=== PATIENT | male | born 1970 | race Caucasian/White ===

== ENCOUNTER → 2017-03-23 | Outpatient (CLI) | payer OTHER | LOC: CAT 07:52 | DX: K57.30 Diverticulosis of large intestine without perforation or abscess without bleeding (principal) ==

== ENCOUNTER 2017-04-13 05:29 | Inpatient (IN) | payer OTHER ==
[~2017-04-13] VITALS: Ht 182.9 cm; Wt 97.8 kg
--- NOTE | ~2017-04-13 | EKG ---
[address] [address] ELECTROCARDIOGRAM REPORT Name: RADHA DUKE Room #: 449-I ADM IN .R.#: [id number] Admission: 04/13/17 Attend Phys: Newton Braxton MD Discharge: Date of : 72 Report #: [id number] THIS REPORT FOR: //name// [facility] Test Date: 2017-04-16 Test Time: 11:28:28 Pat Name: RADHA DUKE Department: Room: [facility] Gender: M [employer] Driver: KETAN : 1970 Requested By: Newton Braxton Order Number: [id number] MD: Olman Deleon Measurements Intervals [place] Rate: 135 P: 19 DC: 128 QRS: 80 QRSD: 77 T: 1 QT: 270 QTc: 405 Interpretive Statements Sinus tachycardia Otherwise no significant abnormality No previous ECG available for comparison Electronically Signed On 04-17-2017 8:22:09 CDT by Olman Deleon [email or web address] <ELECTRONICALLY SIGNED> By: Olman Deleon MD, [facility] 04/17/17 0822 1128 1128 Olman Deleon MD, FAC /EPI
--- NOTE | ~2017-04-13 | HC ---
[facility] [place] [address] [place] [address] CONSULTATION Name: RADHA DUKE Room #: 207-P [facility] IN M.R.#: [id number] Admission: 04/13/17 Attend Phys: Newton Braxton MD Discharge: Date of : 72 Report #: [id number] THIS REPORT FOR: //name// CC: Bull Braxton REFERRING PHYSICIAN: Newton Braxton M.D. REASON FOR REFERRAL: Ventilator management. HISTORY OF PRESENT ILLNESS: The patient is a 47-year-old white male who is status post laparoscopic sigmoid resection for recurrent and complicated diverticulitis. Plan is to take the patient back to the OR tomorrow. The patient is left on a ventilator. A pulmonary consultation is requested. Hemodynamically, the patient is stable. He is sedated. PAST MEDICAL HISTORY: Notable for long history of diverticulitis. He had a recent microperforation. The patient has also developed abdominal abscess, requiring drainage. He had a recent diagnostic laparoscopic drainage and irrigation of the abdominal access. He also has a history of hypertension. PAST SURGICAL HISTORY: As mentioned above. ALLERGIES: NSAIDS, reaction is not specified. MEDICATIONS: His current medication list is reviewed. FAMILY HISTORY: Notable for history of diverticular disease. SOCIAL HISTORY: There is no history of tobacco use. The patient drinks occasionally. 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 REVIEW OF SYSTEMS: Deferred as the patient is intubated. PHYSICAL EXAMINATION: GENERAL: He is sedated. VITAL SIGNS: Temperature 100.5 degrees Fahrenheit, pulse is 108, respiratory rate is 20, blood pressure is 129/85 mmHg, saturation 85%. HEENT: Normocephalic, atraumatic. NECK: Supple without any lymphadenopathy or thyromegaly. CHEST: Breath sounds are clear bilaterally without any rales or wheezes. CARDIOVASCULAR: Normal S1 and S2. There are no murmurs or gallops. There is no JVD. There is no carotid bruit. Pulses are 2+/4+ bilaterally. ABDOMEN: Mildly distended, no masses felt. GENITOURINARY AND RECTAL: Deferred. EXTREMITIES: There is no cyanosis, clubbing or edema. [facility] [address] [place] [address] CONSULTATION Name: RADHA DUEK Room #: 207-P [facility] IN .R.#: [id number] Admission: 04/13/17 Attend Phys: Newton Braxton MD Discharge: Date of : 72 Report #: [id number] LABORATORY DATA: A portable chest x-ray shows mild left lower lobe atelectasis, ET tube approximately 2.5 cm above the tatyana. Right lung cordoba are clear. Lung volumes are decreased bilaterally. Sodium 130, potassium 4.1, chloride 96. CO2 is 27. BUN is 20. Creatinine is 1.0. WBC 11,500, hemoglobin 13.0. Platelets are normal. Arterial blood gas performed earlier revealed pH 7.41, pCO2 of 33, pO2 of 98 on FIO2 of 40%. Current vent settings are reviewed. He is on assist control with FIO2 of 60%. IMPRESSION: 1. Recurrent and complicated diverticulitis, status post laparoscopic surgery, with sigmoid colectomy with low end anastomosis. 2. Respiratory failure, expectant. 3. Hypertension. 4. Hyponatremia. 5. Mild bibasilar atelectasis, expectant. RECOMMENDATION: We will continue mechanical ventilation, wean FIO2 to keep saturation 90% and continue PEEP at 5. Follow up chest x-ray. We will also try to wean FiO2 below 50%-60% to avoid oxygen toxicity. Usual chest physiotherapy including bronchodilators will be administered. Followup chest x-ray will be performed in the morning. We will make changes to the IV fluids given hyponatremia. P.r.n. sedation and pain medication will be addressed. DVT and GI prophylaxes would also be addressed. Thank you for this consultation. <ELECTRONICALLY SIGNED> By: Jonathan Prabhakar MD 04/26/17 1233 1643 0232 Jonathan Prabhakar MD /nt
--- NOTE | ~2017-04-13 | S ---
[facility] [place] [address] [place] [address] SURGICAL PATH RPT PROCEDURE Name: RADHA DUKE Room #: 449-I ADM IN M.R.#: [id number] Admission: 04/13/17 Date of : 72 Discharge: Report #: [id number] Path Case #: [id number] PATHOLOGY REPORT COLLECTION DATE: 04/13/2017 RECEIVED DATE: 04/13/2017 SUBMITTING PHYS: Dr. Newton Braxton OTHER PHYS: Dr. Bull Oglesby SPECIMEN(S) RECEIVED: A.Sigmoid colon * * * * * * * * * * * * FINAL DIAGNOSIS: Large intestine, sigmoid colon, colectomy: - Chronic diverticulitis in a background of extensive diverticulosis. - Negative for dysplasia or malignancy. - Margins of resection showing unremarkable mucosa. (IUV:mgr; 04/17/2017) PATHOLOGIST: Yessenia Vega M.D. REPORT ELECTRONICALLY SIGNED BY: Yessenia Vega M.D. DATE/TIME: 04/17/2017 16:39 * * * * * * * * * * * * GROSS PATHOLOGY: The specimen is received fresh from the OR labeled with the patient's name, and "sigmoid colon" consists of a 27 cm segment of colon with one open end designated as proximal, and one closed stapled end designated as distal per Dr. Newton Braxton. The external serosal surface appears smooth. The specimen is opened longitudinally and it shows multiple diverticula. There are no mucosal mass-like lesions identified. These findings are displayed to Dr. Newton Braxton, and at this point the specimen is left for fixation. (IUV:mgr; 04/13/2017) On further sectioning the largest measuring 1.2 x 1.0 cm which is 4.0 cm from the distal margin. In addition there is an intact diverticulum 0.5 cm closest to the proximal margin measuring 0.6 cm in greatest dimension. A1 proximal margin with diverticulum A2 distal margin A3 largest diverticulum A4-A5 diverticulum from proximal to distal (SWS; 04/14/2017) INTRAOPERATIVE CONSULTATION [address] [place] [address] SURGICAL PATH RPT PROCEDURE Name: RADHA DUKE Room #: 449-I ADM IN M.R.#: [id number] Admission: 04/13/17 Date of : 72 Discharge: Report #: [id number] Path Case #: [id number] (Yessenia Vega M.D.) Large intestine, sigmoid colon, colectomy: - Multiple diverticula. - No mass-like lesions identified. These findings are displayed to Dr. Newton Braxton in OR1 at [facility]. (IUV:mgr; 04/13/2017) Testing performed by [facility] at [facility] [address] [place] [address] CLINICAL HISTORY: None Provided INITIAL CPT CODE(S): A; 82163, 95356 Professional services performed by [facility] at [facility] [address] [place] [address] Technical services performed by [facility] at [address] [place] [address], [address], [place] [address]. [facility] [address] [place] [address] PHONE: [phone] DIRECTOR: Umer Cason M.D. * * * END OF REPORT * * *
--- NOTE | ~2017-04-13 | O ---
[facility] [place] [address] [place] [address] OPERATIVE REPORT Name: RADHA DUKE Room #: 245-P [facility] IN M.R.#: [id number] Admission: 04/13/17 Attend Phys: Newton Braxton MD Discharge: Date of : 72 Report #: [id number] THIS REPORT FOR: //name// CC: Bull Braxton DATE OF SERVICE: 04/19/2017 PREOPERATIVE DIAGNOSES: Status post laparoscopic sigmoid resection, postoperative bowel obstruction. POSTOPERATIVE DIAGNOSIS: Diffuse peritonitis secondary to rupture of disrupted anastomosis, posterior aspect. PROCEDURES PERFORMED: Diagnostic laparoscopy converted to open laparotomy with takedown of the anastomosis and colostomy, copious debridement and irrigation. ANESTHESIA: General. SURGEON: Newton Braxton MD COMPLICATIONS: None. ESTIMATED BLOOD LOSS: 50 mL. PROCEDURE NOTE: With the patient under general anesthesia, abdomen was prepped and draped in sterile fashion. Laparoscope was placed in the cutdown manner above the umbilicus. This is where his previous incision was located from his October surgery. Fascia was identified, Fascia was opened and then controlled with 0 Vicryl suture. Veress needle was then placed through peritoneum. Abdominal cavity was insufflated by CO2. After creating pneumoperitoneum to a pressure of 15, an 11 mm trocar was placed. This was placed under visualization into the pneumoperitoneum. Laparoscopic evaluation shows purulent exudate, particularly in the left abdomen. At this point, procedure was converted to open procedure. Midline incision was made from the umbilicus downward and then extended to above the umbilicus at the midline of the fascial level, the skin level, a little bit left to the umbilicus. The fascia was opened. Peritoneum was opened. There was thickening in the peritoneum. Foul smelling content was identified. Cultures obtained. Small bowel was found and has had multiple areas covered with exudate. The small bowel was angry and inflamed, particularly the proximal aspect on the left upper quadrant area. Dissection was carried down to the pelvis. The small bowel was free from the pelvis. There was increased peritoneal inflammation at the pelvis. With finger palpation, a disruption was identified in the posterolateral anastomosis site. The anterior part was intact. The anastomosis was then divided sharply with scissor. Further contamination was controlled. The distal stump was closed [facility] [address] [place] [address] OPERATIVE REPORT Name: RADHA DUKE Room #: 245-P [facility] IN ..#: [id number] Admission: 04/13/17 Attend Phys: Newton Braxton MD Discharge: Date of : 72 Report #: [id number] with 3-0 Prolene suture in interrupted fashion. Copious irrigation was performed. Peritoneal exudate on the small bowel surface was debrided. I did find a sealed off pocket laterally where the patient had the lateral gutter where the ascending colon was free. Copious irrigation was performed until clear. The NG tube was palpated in the stomach in good position. There was no infection over the liver area. The bowel was run from the ligament of Treitz all the way to the right colon. Colostomy was then placed in the left lower quadrant slightly below the umbilical level. The incision was made here to avoid the previous scar that was in the left lower quadrant. The bowel was quite heavily covered by fat. This fat is more inflamed and thickened. The fat had to be dissected off the colon to bring the colostomy out. Small [place] of skin was excised. The anterior fascia was opened in a cruciate manner. The muscle was spread and also partly divided. Posterior sheath was opened. Bowel was brought out. After multiple evaluations, the bowel was able to be brought out to a significant length. The abdominal wall was left open. ABThera wound VAC was placed. The ABThera wound VAC was measured to size and then placed in the peritoneal cavity. Sponge was placed on the surface. The supplied OpSite type dressing was placed. Good seal was obtained. Prior to this, the colostomy was matured with 3-0 Vicryl suture. The patient was taken to Intensive Care Unit. Mccauley catheter was placed at the end of the case. The patient will be kept on the ventilator to allow him to rest. Finding was discussed with the family. By: 1712 1827 Newton Braxton MD /philip
--- NOTE | ~2017-04-13 | HC ---
[facility] [place] [address] [place] [address] CONSULTATION Name: RADHA DUKE Room #: 207-P [facility] IN M.R.#: [id number] Admission: 04/13/17 Attend Phys: Newton Braxton MD Discharge: Date of : 72 Report #: [id number] THIS REPORT FOR: //name// CC: Bull Braxton REASON FOR CONSULTATION: I was asked to evaluate the patient concerning peritonitis with postoperative infection following diverticular disease and sigmoid resection. HISTORY OF PRESENT ILLNESS: The patient was a 47-year-old with a long history of diverticulitis. He had had issues earlier this year where he had evidence of a microperforation and pelvic abscess. He was treated at [facility]. At that time, he had had laparoscopic drainage and irrigation. He had postoperative antibiotic therapy. He presented on 04/13 for elective sigmoid resection. Dr. Braxton performed a laparoscopic sigmoid colectomy with low EEA anastomosis. There were no intraoperative complications. Findings included a markedly inflamed sigmoid colon adherent to the left pelvic brim. Postoperatively, he had continued abdominal distention and poor progression of bowel function. He was taken back to surgery today where there was evidence of peritonitis with anastomotic disruption posteriorly. He had end colostomy performed along with washout. Postoperatively, he has had fever and transient hypotension. He remains on the ventilator, FiO2 of 60%. He has responded to fluid boluses. He has good urine output. He has been given vancomycin and Zosyn. He has IV access and an indwelling Mccauley catheter. His abdomen was left open and has an incisional wound VAC in place. He has a colostomy in the left lower quadrant. ALLERGIES: NONSTEROIDAL ANTI-INFLAMMATORIES. MEDICATIONS: As noted on his MAR including vancomycin and Zosyn. PAST MEDICAL HISTORY: Pulmonary embolus, hypertension and diverticulitis. FAMILY HISTORY: Diverticular disease. 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 REVIEW OF SYSTEMS: As noted above with no additions. PHYSICAL EXAMINATION: VITAL SIGNS: Currently afebrile. He is tachycardic. Blood pressure is stable over 100 systolic on an FIO2 of 60%. IV access unremarkable. Indwelling Mccauley catheter with reasonable urine output. SKIN: Unremarkable. HEENT: Unremarkable. He was sedated. LUNGS: Clear anteriorly. [address] [address] CONSULTATION Name: RADHA DUKE Room #: 207-P [facility] IN M.R.#: [id number] Admission: 04/13/17 Attend Phys: Newton Braxton MD Discharge: Date of : 72 Report #: [id number] HEART: Regular. ABDOMEN: Diffusely tender. Colostomy site was unremarkable. Abdominal wound VAC in place. GENITOURINARY: External genitalia unremarkable with indwelling Mccauley catheter. EXTREMITIES: Unremarkable. He did move all extremities. LABORATORY STUDIES: Hemoglobin 15, WBC 14.3 with 28% bands, platelet count 233,000. Procalcitonin 28.7, sodium 134, potassium 4.7, bicarb of 23, creatinine 1.2. Liver function tests normal except for bilirubin of 2.9. ABG on 60% showed a pO2 of 98, pCO2 of 33, pH 7.4, bicarb of 20, lactate 2.3. Chest x-ray: Basilar atelectasis. Urinalysis unremarkable other than 2+ protein. Blood cultures and peritoneal cultures are pending. IMPRESSION: This is a 47-year-old with peritonitis and sepsis with transient shock. He has marked leukocytosis. Respiratory failure related to the above. He is postoperative day #6 from his initial sigmoid resection. Now postoperative day from exploratory laparotomy and washout of fecal peritonitis. RECOMMENDATION: We will continue broad antibiotic coverage including vancomycin, Zosyn and fluconazole, pending culture results. Full support of sepsis. I have discussed with nursing staff at the bedside regarding approach to his care. I have discussed with the patient's family. Initial discussion with Dr. Braxton prior to my evaluation. We will adjust antibiotics following culture results. The patient is scheduled to return to the operating room tomorrow for further washout and probable closure of his abdomen. We will follow laboratory studies. <ELECTRONICALLY SIGNED> By: Terrell Fairbanks MD 04/25/17 1322 2019 0445 Terrell Fairbanks MD /nt
--- NOTE | ~2017-04-13 | O ---
[facility] [place] [address] [place] [address] OPERATIVE REPORT Name: RADHA DUKE Room #: 407-P [facility] IN M.R.#: [id number] Admission: 04/13/17 Attend Phys: Newton Braxton MD Discharge: Date of : 72 Report #: [id number] THIS REPORT FOR: //name// CC: Bull Braxton DATE OF SERVICE: 04/13/2017 PREOPERATIVE DIAGNOSIS: Sigmoid diverticulitis. POSTOPERATIVE DIAGNOSIS: Sigmoid diverticulitis. PROCEDURE PERFORMED: Laparoscopic sigmoid colectomy with low EEA anastomosis. Mobilization of the splenic flexure. SURGEON: Newton Braxton M.D. ANESTHESIA: General anesthesia. COMPLICATIONS: None. ESTIMATED BLOOD LOSS: 50 mL. DESCRIPTION OF PROCEDURE NOTE: With the patient under general anesthesia, abdomen was prepped and draped in sterile fashion. The patient was in the lithotomy position. IV antibiotic was administered. Timeout was performed. An infraumbilical incision was made and fascia identified. Fascia was grasped with hemostat. Fascia was then opened under visualization, 0 Vicryl suture placed on the fascia. With the abdominal wall lifted anteriorly, Veress needle was then placed without difficulty. Pneumoperitoneum was established. An 11 mm trocar was placed under visualization. No harm to underlying tissue. A 5 mm trocar was placed in the right lower quadrant. Another 5 mm trocar was placed in the right upper quadrant just above the umbilicus. These are the sides that I previously used for port site to evacuate a pelvis abscess just above the bladder. The area of the involvement of the diverticulitis was easily visualized. The colon was adhesed to the lateral pelvic brim area. Dissection was carried out freeing the colon from the lateral attachment. Care was not to dig into the retroperitoneum. Dissection was carried superiorly. The colon was free all the way up to the splenic flexure. The omentum was free from the distal transverse colon. An accessory spleen was found and the colon was applied against this. The splenic flexure was freed from the accessory spleen allowing it to drop. Dissection was then carried inferiorly. A 12 mm trocar was placed to the left lower quadrant where the bowel eventually be pulled out from. This was used to hold the bowel. This was used to facilitate the dissection. Lateral dissection was carried out. There is scar tissue here. I was able to develop a plane fairly easily. There is also bowel adhesed to the [facility] [address] [place] [address] OPERATIVE REPORT Name: RADHA DUKE Room #: 407-P [facility] IN .R.#: [id number] Admission: 04/13/17 Attend Phys: Newton Braxton MD Discharge: Date of : 72 Report #: [id number] bladder ____. The colon appeared pretty healthy. The diseased colon is above this area in the mid sigmoid. Medial dissection was carried out freeing the sigmoid colon down to the rectum. The mesentery was able to be dissected through a Harmonic scalpel and also clips were used for the vessels. The mesocolon was freed. This was free from above the diseased area down to the upper rectum. The upper rectum was free without difficulty. The distal transection was performed with Endo-JONES 45 mm in length with the blue westley. Three separate fires were used. A very last staple was on very edge of the bowel wall left laterally. Once the bowel was freed, the end was grasped and then pulled through the 12 mm trocar site and incision was enlarged and the fascia was opened. Due to the bowel being quite thickened, I did have to make incision to allow that bowel to come out. The diseased bowel was identified in the middle by specimen. The specimen was approximately 10 inches. The proximal bowel was cleaned off and then pursestring maker was placed across the bowel. A 3-0 PDS with a Robinson needle was used to make the pursestring. The bowel was sized to a 29 ____. A 29 EEA was used. The anvil portion was placed in the proximal bowel. The pursestring was tied down. Further fatty tissue was freed from the stapled anvil portion. This was then brought back in the abdomen. The fascia at this side was closed with 0 PDS and the posterior layer. Anteriorly, it was closed with 0 Prolene. A laparoscope was then placed. The proximal bowel was able to be brought down the pelvis without difficulty. The 29 EEA was then passed up the anus. This was passed up to the staple line without difficulty. At this point, I was right at the end, the perforating portion of the EEA was advanced out. The upper part of the anvil of the EEA was then snapped together with the lower part. The EEA was closed. After closing this and then tightening it allowing ____ tissue fluid to come out. The EEA was fired. After firing the EEA, the EEA was loosened 1-1/4 turned and then removed. Rigid proctoscope was placed. The colon was well distended with air and there was no leak identified. The air was evacuated as much as possible with withdrawing the proctoscope. The staple line, the visualized portion, was well formed. No bubbling was seen with the anastomosis ____. Irrigation was aspirated out. Trocars then removed with evacuation of CO2 as much as possible. Prior to the closure, the right lower quadrant 12 mm trocar, which was used for the Endo-JONES, this was closed with Endo stitch device and 0 PDS. Skin was irrigated. Skin was closed with 4-0 PDS at the left lower quadrant incision site. The arthroscopic trocar sites were all closed with 5-0 PDS, 4 x 4, OpSite used for dressing. Mastisol and Steri-Strip, Band-Aids applied. The patient taken to recovery room. The patient tolerated the procedure well. By: 2154 0055 Newton Braxton MD /nt
--- NOTE | ~2017-04-13 | O ---
[facility] [place] [address] [place] [address] OPERATIVE REPORT Name: RADHA DUKE Room #: 245-P [facility] IN M.R.#: [id number] Admission: 04/13/17 Attend Phys: Newton Braxton MD Discharge: Date of : 72 Report #: [id number] THIS REPORT FOR: //name// CC: Bull Braxton DATE OF SERVICE: 04/20/2017 PREOPERATIVE DIAGNOSIS: Peritonitis secondary to disrupted anastomosis. Here for a second look. POSTOPERATIVE DIAGNOSIS: Peritonitis secondary to disrupted anastomosis. Here for a second look. PROCEDURES PERFORMED: Second look laparotomy with irrigation, placing a drain and then closing of the abdominal wall. DESCRIPTION OF PROCEDURE: With the patient under general anesthesia, the ABThera dressing was removed. The skin was prepped with Betadine. The inner portion of the ABThera was removed. Small serous fluid with slight cloudiness to it was seen. The small bowel underneath are soft, but adherent to each other. Careful dissection was performed to free the bowel loop from each other. The bowels were all free without hurting it from ligament of Treitz down to the cecum. A small amount of interloop fluid, which is slightly cloudy, but did not have any odor. The previous rectal stump was seen and it is intact. No gross contamination. Each quadrant was irrigated. Approximately 3 liters irrigated. The bowel was replaced as gently as possible, starting from the left upper quadrant to the right lower quadrant. A moistened laparotomy tape was placed in the bowel. The abdomen was then closed. Prior to closure, 2 drains were placed, both in the lower quadrant. The one on the right is going into the pelvis and the one on the left is going up to the left gutter. This is where a previous collection was found. 19 Cody drain was sewn with 2-0 nylon. Abdominal wall was closed. Fascia was closed with 0 Prolene loop x 2. During the midline closure, 2 bolster sutures were placed of #1 Prolene. Adjustable bridge was used to these 2 sites. Skin was then closed with skin westley. The patient tolerated the procedure well and was taken to Intensive Care. By: 1021 1104 Newton Braxton MD /nt
--- NOTE | ~2017-04-13 | H ---
[facility] [place] [address] [place] [address] HISTORY AND PHYSICAL Name: RADHA DUKE Room #: 150-1 ADM IN .R.#: [id number] Admission: 04/13/17 Attend Phys: Newton Braxton MD Discharge: Date of : 72 Report #: [id number] THIS REPORT FOR: //name// CC: Bull Braxton PREOPERATIVE DIAGNOSIS: Diverticulitis with multiple attacks, complicated episode in October 2016 with abscess formation. HISTORY OF PRESENT ILLNESS: The patient is a 47-year-old who has a longstanding history of diverticulitis. The patient in October complained of pain in the prostate, anal area, urethral area and he was found on CAT scan to have diverticulitis and there was microperforation with fluid tracking into the pelvis anterior to the bladder. He was hospitalized at [facility]. The patient does have family history of ruptured colon. His prior episodes were able to be treated as an outpatient. The patient did develop an abscess that required drainage. This was not amenable to percutaneous drainage. The patient underwent diagnostic laparoscopy, drainage and irrigation. The patient did resolve that acute episode. He was also on antibiotics. The drain was eventually removed. His repeat CT did show resolution of the acute episode. Recently, he did have some more pain, so was treated with a course of antibiotics. He did resolve that. He is here for resection of the sigmoid colon. He does have diffuse , but the sigmoid colon is markedly diseased on CT scan. After his hospitalization, the patient was admitted for a pulmonary embolus. PAST MEDICAL HISTORY: He has a history of hypertension. MEDICATIONS: He takes Flomax. He is not on anything for high blood pressure. ALLERGIES: TO NSAIDS. PAST SURGICAL HISTORY: Laparoscopic drainage of diverticular abscess. FAMILY HISTORY: Colon disease with diverticular disease. 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 Does not smoke. Occasional alcohol. REVIEW OF SYSTEMS: The patient did have an episode several weeks ago, but he has resolved that. He denies any pain. Bowels are working. No chest pain, shortness of breath, palpitation. PHYSICAL EXAMINATION: GENERAL: The patient is alert and oriented. Well-developed, well-nourished. HEENT: Pupils react to light. Extraocular muscles are intact. Oropharynx clear. [facility] [address] [place] [address] HISTORY AND PHYSICAL Name: RADHA DUKE Room #: 150-1 [facility] IN [facility].#: [id number] Admission: 04/13/17 Attend Phys: Newton Braxton MD Discharge: Date of : 72 Report #: [id number] NECK: Soft and supple, no masses, no JVD. LUNGS: Clear to auscultation. No wheezes or rhonchi. HEART: Regular rate and rhythm. No murmur or gallop. Normal S1, S2. ABDOMEN: Soft and minimal tenderness in the left lower quadrant. No mass detected. No guarding, rigidity, no ascites. EXTREMITIES: No cyanosis, clubbing or edema. IMPRESSION: The patient is a 47-year-old with several episodes of diverticulitis. The patient had a complicated episode in October that required laparoscopic drainage. Because of the recurrent nature and the attack that he had, he is recommended to have his sigmoid colon removed. The patient is at higher risk for deep venous thrombosis and pulmonary embolism. He will be prophylaxed. The patient did receive a mechanical bowel prep in the night. The patient understands that he has remaining diverticulosis, hopefully would not have any attacks. The patient wants to proceed with surgery to avoid future episodes which is very likely to occur. By: 0812 0922 Newton Braxton MD /nt
[2017-04-13 09:49] LABS: HEMATOCRIT 48.2 % (42.0-52.0); HEMOGLOBIN 17.1 gm/dL (14.0-18.0); MCHC 35.4 g/dL (28.0-37.0); MCV 87.6 fL (80.0-100.0); RBC 5.5 mil/uL (4.50-6.00); RDW 13.7 % (10.5-14.5)
[2017-04-13 10:01] LABS: CALCIUM 9.2 mg/dL (8.5-10.1); CREATININE 1.1 mg/dL (0.7-1.3); POTASSIUM 4.1 mmol/L (3.5-5.1)
[2017-04-13 11:01] VITALS: BP 125/85
[2017-04-13 16:32] VITALS: BP 143/89
[2017-04-13 20:15] VITALS: BP 116/77
[2017-04-14 00:15] VITALS: BP 105/67
[2017-04-14 03:52] LABS: CALCIUM 8.2 mg/dL (8.5-10.1); CREATININE 1.1 mg/dL (0.7-1.3); POTASSIUM 4.3 mmol/L (3.5-5.1)
[2017-04-14 04:23] VITALS: BP 109/71
[2017-04-14 04:32] LABS: HEMATOCRIT 42.4 % (42.0-52.0); MCH 30.8 pg (26.0-34.0); MCHC 34.6 g/dL (28.0-37.0); MCV 89.1 fL (80.0-100.0); RBC 4.76 mil/uL (4.50-6.00); RDW 13.8 % (10.5-14.5); WBC 12.6 thou/uL (4.0-11.0)
[2017-04-14 04:42] LABS: HEMOGLOBIN 14.7 gm/dL (14.0-18.0)
[2017-04-14 07:36] VITALS: BP 106/54
[2017-04-14 16:32] VITALS: BP 122/69
[2017-04-14 20:05] VITALS: BP 130/78
[2017-04-15 04:08] VITALS: BP 127/79
[2017-04-15 07:41] VITALS: BP 132/82
[2017-04-15 17:33] VITALS: BP 149/99
[2017-04-16 05:20] LABS: MCH 30.8 pg (26.0-34.0); MCHC 34.2 g/dL (28.0-37.0); MCV 90.2 fL (80.0-100.0); RBC 5.55 mil/uL (4.50-6.00); RDW 13.4 % (10.5-14.5); WBC 7.1 thou/uL (4.0-11.0)
[2017-04-16 05:21] LABS: HEMOGLOBIN 17.1 gm/dL (14.0-18.0)
[2017-04-16 05:45] LABS: CALCIUM 9.1 mg/dL (8.5-10.1); CREATININE 1.2 mg/dL (0.7-1.3); POTASSIUM 4.6 mmol/L (3.5-5.1)
[2017-04-16 08:06] VITALS: BP 109/75
[2017-04-16 11:30] LABS: ABG SAMPLE TYPE ARTERIAL; BE(vivo) -2.4 mmol/L (-2 to +3); HCO3 20.3 mmol/L (22.0-26.0); LACTATE 2.64 mmol/L (0.5-2.0); O2(CT) 21.9 mL/dL (15.0-23.0); O2Hb 91.7 % (92.0-98.0); PCO2 30.3 mmHg (35.0-45.0); PO2 58.8 mmHg (80.0-100.0); STICK SITE L.RADIAL; pH 7.443 (7.360-7.450); sO2 91.8 % (92.0-98.0); tCO2 21.2 mmol/L (24.0-30.0)
[2017-04-16 14:50] VITALS: BP 123/82
[2017-04-16 16:00] VITALS: BP 102/69
[2017-04-16 19:25] VITALS: BP 115/80
[2017-04-17] VITALS (7 sets, daily range): BP systolic 109–135; BP diastolic 60–88
[2017-04-17 04:49] LABS: HEMATOCRIT 44.3 % (42.0-52.0); MCH 30.6 pg (26.0-34.0); MCHC 33.9 g/dL (28.0-37.0); MCV 90.3 fL (80.0-100.0); PLATELET COUNT 172 thou/uL (150-400); RDW 13.4 % (10.5-14.5); WBC 8.6 thou/uL (4.0-11.0)
[2017-04-17 05:11] LABS: CALCIUM 8.9 mg/dL (8.5-10.1); CREATININE 1.4 mg/dL (0.7-1.3); MANUAL DIFF YES; POTASSIUM 4.8 mmol/L (3.5-5.1)
[2017-04-17 05:47] LABS: ABSOLUTE NEUTROPHILS 6.5 thou/uL (1.4-8.2); METAMYELOCYTES 5 %; TOTAL CELL COUNT 100
[2017-04-17 15:22] LABS: URINE BILIRUBIN 1+ (Negative); URINE BLOOD 1+ (Negative); URINE COLOR ORANGE; URINE GLUCOSE-RANDOM* TRACE (Negative); URINE KETONES NEGATIVE (Negative); URINE NITRITE POSITIVE (Negative); URINE PROTEIN (DIPSTICK) 2+ (Negative); URINE SPECIFIC GRAVITY >= 1.030 (1.003-1.035); URINE UROBILINOGEN 0.2 E.U./dl (0.2-1.0)
[2017-04-17 15:23] LABS: ICTOTEST (BILI CONFIRMATORY) Negative (Negative)
[2017-04-17 16:10] LABS: BACTERIA 1-9 Few /HPF (None Seen); SQUAMOUS None Seen /LPF (0-3); URINE RBC None Seen /HPF (0-2); URINE WBC None Seen /HPF (0-5)
[2017-04-17 16:11] LABS: CASTS None Seen /LPF (None Seen); CRYSTALS None Seen /LPF (None Seen)
[2017-04-18] VITALS: BP 159/112
[2017-04-18 04:12] VITALS: BP 122/85
[2017-04-18 07:22] VITALS: BP 141/94
[2017-04-18 11:14] LABS: HEMATOCRIT 38.1 % (42.0-52.0); HEMOGLOBIN 13.4 gm/dL (14.0-18.0); MCH 31.1 pg (26.0-34.0); MCHC 35.1 g/dL (28.0-37.0); MCV 88.6 fL (80.0-100.0); PLATELET COUNT 188 thou/uL (150-400); RDW 13.4 % (10.5-14.5); WBC 8.7 thou/uL (4.0-11.0)
[2017-04-18 11:15] VITALS: BP 150/92
[2017-04-18 11:15] LABS: MANUAL DIFF YES
[2017-04-18 11:22] LABS: CALCIUM 8.8 mg/dL (8.5-10.1); POTASSIUM 4.3 mmol/L (3.5-5.1)
[2017-04-18 11:58] LABS: ABSOLUTE NEUTROPHILS 7.9 thou/uL (1.4-8.2); PLATELET ESTIMATE NORMAL; TOTAL CELL COUNT 100
[2017-04-18 15:49] VITALS: BP 134/89
[2017-04-18 20:06] VITALS: BP 141/95
[2017-04-19] VITALS (19 sets, daily range): BP systolic 88–159; BP diastolic 71–112
[2017-04-19 06:24] LABS: HEMATOCRIT 36.9 % (42.0-52.0); MCHC 35.2 g/dL (28.0-37.0); MCV 88.1 fL (80.0-100.0); RBC 4.18 mil/uL (4.50-6.00); RDW 13.6 % (10.5-14.5); WBC 11.5 thou/uL (4.0-11.0)
[2017-04-19 06:35] LABS: CALCIUM 8.7 mg/dL (8.5-10.1); POTASSIUM 4.1 mmol/L (3.5-5.1)
[2017-04-19 16:34] LABS: ABG SAMPLE TYPE ARTERIAL; BE(vivo) -2.9 mmol/L (-2 to +3); HCO3 20.6 mmol/L (22.0-26.0); LACTATE 2.37 mmol/L (0.5-2.0); O2Hb 96.8 % (92.0-98.0); PCO2 33.1 mmHg (35.0-45.0); PO2 98.3 mmHg (80.0-100.0); STICK SITE R.BRACHIAL; TIDAL VOLUME 700 ml; pH 7.412 (7.360-7.450); sO2 97.6 % (92.0-98.0); tCO2 21.6 mmol/L (24.0-30.0)
[2017-04-19 18:42] LABS: HEMATOCRIT 44.5 % (42.0-52.0); MCH 30.3 pg (26.0-34.0); MCHC 33.6 g/dL (28.0-37.0); MCV 90.2 fL (80.0-100.0); PLATELET COUNT 233 thou/uL (150-400); RBC 4.94 mil/uL (4.50-6.00); RDW 13.6 % (10.5-14.5); WBC 14.3 thou/uL (4.0-11.0)
[2017-04-19 18:56] LABS: INR 1.1; PROTIME 11.6 Seconds (9.3-11.4)
[2017-04-19 19:00] LABS: MANUAL DIFF YES
[2017-04-19 19:02] LABS: CALCIUM 7.5 mg/dL (8.5-10.1); CREATININE 1.2 mg/dL (0.7-1.3); POTASSIUM 4.7 mmol/L (3.5-5.1)
[2017-04-19 19:06] LABS: ALBUMIN 1.4 g/dL (3.4-5.0); TOTAL BILIRUBIN 2.9 mg/dL (<0.1-1.0); TOTAL PROTEIN 4.9 g/dL (6.4-8.2)
[2017-04-19 19:36] LABS: TOTAL CELL COUNT 100
[2017-04-19 19:37] LABS: METAMYELOCYTES 8 %; MYELOCYTES 3 %
[2017-04-19 19:38] LABS: PLATELET ESTIMATE NORMAL
[2017-04-19 21:08] LABS: URINE BILIRUBIN 2+ (Negative); URINE BLOOD NEGATIVE (Negative); URINE COLOR AMBER; URINE GLUCOSE-RANDOM* NEGATIVE (Negative); URINE KETONES TRACE (Negative); URINE LEUKOCYTES-REFLEX NEGATIVE (Negative); URINE PROTEIN (DIPSTICK) 1+ (Negative); URINE SPECIFIC GRAVITY 1.025 (1.003-1.035); URINE UROBILINOGEN 0.2 E.U./dl (0.2-1.0)
[2017-04-19 21:20] LABS: CASTS None Seen /LPF (None Seen); CRYSTALS None Seen /LPF (None Seen); SQUAMOUS 0-3 Few /LPF (0-3); URINE RBC None Seen /HPF (0-2); URINE WBC-REFLEX None Seen /HPF (0-5)
[2017-04-19 22:37] LABS: CALCIUM 7.4 mg/dL (8.5-10.1); CREATININE 0.9 mg/dL (0.7-1.3); POTASSIUM 4.7 mmol/L (3.5-5.1)
[2017-04-19 22:42] LABS: APTT 36.9 Seconds (24.5-32.8); FIBRINOGEN 564.9 mg/dL (210-360); INR 1.1; PROTIME 11.4 Seconds (9.3-11.4)
[2017-04-20] VITALS (55 sets, daily range): BP systolic 98–134; BP diastolic 59–90
[2017-04-20 04:59] LABS: HEMATOCRIT 39.8 % (42.0-52.0); HEMOGLOBIN 13.4 gm/dL (14.0-18.0); MCH 30.4 pg (26.0-34.0); MCHC 33.7 g/dL (28.0-37.0); MCV 90.2 fL (80.0-100.0); RBC 4.41 mil/uL (4.50-6.00); RDW 14.2 % (10.5-14.5); WBC 15.9 thou/uL (4.0-11.0)
[2017-04-20 05:10] LABS: CALCIUM 7.4 mg/dL (8.5-10.1); CREATININE 0.9 mg/dL (0.7-1.3); POTASSIUM 4.6 mmol/L (3.5-5.1)
[2017-04-20 05:12] LABS: APTT 34.3 Seconds (24.5-32.8); INR 1.1
[2017-04-20 05:17] LABS: FIBRINOGEN 719.7 mg/dL (210-360)
[2017-04-20 11:36] LABS: ALBUMIN 1.3 g/dL (3.4-5.0); MAGNESIUM 2.3 mg/dL (1.8-2.4)
[2017-04-20 12:40] LABS: ALBUMIN 1.4 g/dL (3.4-5.0); TOTAL BILIRUBIN 2.4 mg/dL (<0.1-1.0); TOTAL PROTEIN 4.1 g/dL (6.4-8.2)
[2017-04-21] VITALS (48 sets, daily range): BP systolic 90–133; BP diastolic 58–88
[2017-04-21 05:26] LABS: ABG COMMENT AC14 700 +5 50%; ABG SAMPLE TYPE ARTERIAL; BE(vivo) 0.1 mmol/L (-2 to +3); HCO3 24.3 mmol/L (22.0-26.0); LACTATE 1.19 mmol/L (0.5-2.0); O2(CT) 16.9 mL/dL (15.0-23.0); O2Hb 97.5 % (92.0-98.0); PCO2 37.9 mmHg (35.0-45.0); PO2 130.5 mmHg (80.0-100.0); STICK SITE LRA; TIDAL VOLUME 700 ml; pH 7.425 (7.360-7.450); sO2 98.7 % (92.0-98.0); tCO2 25.5 mmol/L (24.0-30.0)
[2017-04-21 05:42] LABS: RDW 14.2 % (10.5-14.5)
[2017-04-21 05:44] LABS: MCHC 34.5 g/dL (28.0-37.0); MCV 89.8 fL (80.0-100.0); PLATELET COUNT 185 thou/uL (150-400); RBC 3.34 mil/uL (4.50-6.00); WBC 16.8 thou/uL (4.0-11.0)
[2017-04-21 05:45] LABS: HEMOGLOBIN 10.4 gm/dL (14.0-18.0); MANUAL DIFF YES
[2017-04-21 06:11] LABS: CALCIUM 7.2 mg/dL (8.5-10.1); CREATININE 0.7 mg/dL (0.7-1.3); MAGNESIUM 2.5 mg/dL (1.8-2.4); PHOSPHORUS 1.8 mg/dL (2.5-4.9); POTASSIUM 3.8 mmol/L (3.5-5.1)
[2017-04-21 06:11] LABS: ABSOLUTE NEUTROPHILS 13.9 thou/uL (1.4-8.2); ATYPICAL LYMPHS 1 %; METAMYELOCYTES 2 %; TOTAL CELL COUNT 100
[2017-04-21 06:12] LABS: ANISOCYTOSIS 1+; POLYCHROMASIA OCCASIONAL
[2017-04-22] VITALS (24 sets, daily range): BP systolic 111–156; BP diastolic 68–89
[2017-04-22 05:42] LABS: HEMATOCRIT 31.2 % (42.0-52.0); HEMOGLOBIN 10.6 gm/dL (14.0-18.0); MCH 30.7 pg (26.0-34.0); MCV 90.1 fL (80.0-100.0); PLATELET COUNT 223 thou/uL (150-400); RBC 3.47 mil/uL (4.50-6.00); RDW 14.8 % (10.5-14.5); WBC 19.5 thou/uL (4.0-11.0)
[2017-04-22 05:53] LABS: MANUAL DIFF YES
[2017-04-22 05:59] LABS: ALBUMIN 1.2 g/dL (3.4-5.0); CALCIUM 7.1 mg/dL (8.5-10.1); CREATININE 0.7 mg/dL (0.7-1.3); MAGNESIUM 2.3 mg/dL (1.8-2.4); PHOSPHORUS 3.1 mg/dL (2.5-4.9); POTASSIUM 4.4 mmol/L (3.5-5.1); TOTAL BILIRUBIN 1.9 mg/dL (<0.1-1.0); TOTAL PROTEIN 4.7 g/dL (6.4-8.2)
[2017-04-22 10:07] LABS: ABSOLUTE NEUTROPHILS 15.6 thou/uL (1.4-8.2); ANISOCYTOSIS 1+; METAMYELOCYTES 3 %; TOTAL CELL COUNT 100
[2017-04-22 10:08] LABS: POLYCHROMASIA OCCASIONAL
[2017-04-22 11:24] LABS: ABG SAMPLE TYPE ARTERIAL; BE(vivo) -0.1 mmol/L (-2 to +3); HCO3 23.5 mmol/L (22.0-26.0); LACTATE 0.81 mmol/L (0.5-2.0); O2(CT) 17.6 mL/dL (15.0-23.0); PO2 104.3 mmHg (80.0-100.0); pH 7.445 (7.360-7.450); tCO2 24.6 mmol/L (24.0-30.0)
[2017-04-22 11:25] LABS: Pressure Support 8 cm H20; STICK SITE L.RADIAL
[2017-04-23] VITALS (23 sets, daily range): BP systolic 137–165; BP diastolic 81–111
[2017-04-23 05:51] LABS: HEMATOCRIT 30.3 % (42.0-52.0); HEMOGLOBIN 10.1 gm/dL (14.0-18.0); MCH 29.8 pg (26.0-34.0); MCHC 33.3 g/dL (28.0-37.0); MCV 89.4 fL (80.0-100.0); RBC 3.39 mil/uL (4.50-6.00); RDW 14.4 % (10.5-14.5); WBC 20.9 thou/uL (4.0-11.0)
[2017-04-23 06:10] LABS: CALCIUM 7.7 mg/dL (8.5-10.1); CREATININE 0.6 mg/dL (0.7-1.3); MAGNESIUM 1.9 mg/dL (1.8-2.4); PHOSPHORUS 3.2 mg/dL (2.5-4.9); POTASSIUM 4.3 mmol/L (3.5-5.1)
[2017-04-24] VITALS (18 sets, daily range): BP systolic 135–161; BP diastolic 81–95
[2017-04-24 04:39] LABS: HEMATOCRIT 29.3 % (42.0-52.0); MCH 30.3 pg (26.0-34.0); MCHC 34.1 g/dL (28.0-37.0); RBC 3.29 mil/uL (4.50-6.00); RDW 14.6 % (10.5-14.5); WBC 19.2 thou/uL (4.0-11.0)
[2017-04-24 04:59] LABS: CALCIUM 7.6 mg/dL (8.5-10.1); CREATININE 0.6 mg/dL (0.7-1.3); MAGNESIUM 1.7 mg/dL (1.8-2.4); POTASSIUM 4.2 mmol/L (3.5-5.1)
[2017-04-25 00:08] VITALS: BP 145/97
[2017-04-25 03:53] VITALS: BP 153/89
[2017-04-25 07:25] VITALS: BP 162/101
[2017-04-25 08:15] LABS: HEMATOCRIT 30.7 % (42.0-52.0); HEMOGLOBIN 10.2 gm/dL (14.0-18.0); MCH 29.6 pg (26.0-34.0); MCHC 33.2 g/dL (28.0-37.0); PLATELET COUNT 377 thou/uL (150-400); RBC 3.45 mil/uL (4.50-6.00); RDW 14.1 % (10.5-14.5); WBC 20.5 thou/uL (4.0-11.0)
[2017-04-25 08:19] LABS: MANUAL DIFF YES
[2017-04-25 08:31] LABS: CALCIUM 7.9 mg/dL (8.5-10.1); CREATININE 0.6 mg/dL (0.7-1.3); MAGNESIUM 1.9 mg/dL (1.8-2.4); PHOSPHORUS 3.3 mg/dL (2.5-4.9); POTASSIUM 4.4 mmol/L (3.5-5.1)
[2017-04-25 09:06] LABS: ABSOLUTE NEUTROPHILS 15.2 thou/uL (1.4-8.2); METAMYELOCYTES 4 %; MYELOCYTES 1 %; PLATELET ESTIMATE NORMAL; TOTAL CELL COUNT 100
[2017-04-25 11:04] VITALS: BP 157/103
[2017-04-25 18:02] VITALS: BP 144/91
[2017-04-25 20:35] VITALS: BP 146/100
[2017-04-26 00:12] VITALS: BP 144/91
[2017-04-26 04:35] VITALS: BP 139/94
[2017-04-26 06:18] LABS: HEMATOCRIT 29.7 % (42.0-52.0); HEMOGLOBIN 9.9 gm/dL (14.0-18.0); MCHC 33.5 g/dL (28.0-37.0); MCV 89.4 fL (80.0-100.0); PLATELET COUNT 445 thou/uL (150-400); RBC 3.32 mil/uL (4.50-6.00); RDW 14.2 % (10.5-14.5)
[2017-04-26 06:28] LABS: CALCIUM 7.8 mg/dL (8.5-10.1); CREATININE 0.7 mg/dL (0.7-1.3); POTASSIUM 4.1 mmol/L (3.5-5.1)
[2017-04-26 06:37] LABS: MANUAL DIFF YES
[2017-04-26 07:57] VITALS: BP 136/90
[2017-04-26 08:54] LABS: ABSOLUTE NEUTROPHILS 14.6 thou/uL (1.4-8.2); ANISOCYTOSIS SLIGHT; METAMYELOCYTES 5 %; TOTAL CELL COUNT 100
[2017-04-26 11:35] VITALS: BP 135/88
[2017-04-26 15:05] VITALS: BP 147/89
[2017-04-26 19:37] VITALS: BP 172/104
[2017-04-27] VITALS (10 sets, daily range): BP systolic 130–147; BP diastolic 75–98
[2017-04-27 07:54] LABS: CALCIUM 7.9 mg/dL (8.5-10.1); CREATININE 0.7 mg/dL (0.7-1.3); MAGNESIUM 2.1 mg/dL (1.8-2.4); PHOSPHORUS 2.8 mg/dL (2.5-4.9); POTASSIUM 4.2 mmol/L (3.5-5.1)
[2017-04-28 03:59] LABS: HEMOGLOBIN 11.5 gm/dL (14.0-18.0); MCH 36.9 pg (26.0-34.0); PLATELET COUNT 488 thou/uL (150-400); RBC 3.11 mil/uL (4.50-6.00); RDW 14.4 % (10.5-14.5); WBC 16.1 thou/uL (4.0-11.0)
[2017-04-28 04:01] LABS: MANUAL DIFF YES
[2017-04-28 04:09] LABS: CALCIUM 6.8 mg/dL (8.5-10.1); CREATININE 0.6 mg/dL (0.7-1.3); MAGNESIUM 1.9 mg/dL (1.8-2.4); PHOSPHORUS 2.9 mg/dL (2.5-4.9); POTASSIUM 3.9 mmol/L (3.5-5.1)
[2017-04-28 05:23] VITALS: BP 138/87
[2017-04-28 07:30] VITALS: BP 140/93
[2017-04-28 07:54] LABS: ABSOLUTE NEUTROPHILS 11.1 thou/uL (1.4-8.2); MYELOCYTES 3 %; PROMYELOCYTES 1 %; TOTAL CELL COUNT 100
[2017-04-28 11:37] VITALS: BP 140/93
[2017-04-28 11:40] VITALS: BP 140/79
[2017-04-28 15:50] VITALS: BP 146/86
[2017-04-28 19:39] VITALS: BP 160/93
[2017-04-29] VITALS (7 sets, daily range): BP systolic 132–171; BP diastolic 88–102
[2017-04-29 07:00] LABS: CALCIUM 6.7 mg/dL (8.5-10.1); CREATININE 0.8 mg/dL (0.7-1.3); MAGNESIUM 1.6 mg/dL (1.8-2.4); PHOSPHORUS 2.8 mg/dL (2.5-4.9); POTASSIUM 3.3 mmol/L (3.5-5.1)
[2017-04-29 13:47] LABS: MAGNESIUM 2.3 mg/dL (1.8-2.4)
[2017-04-29 13:49] LABS: POTASSIUM 5.9 mmol/L (3.5-5.1)
[2017-04-30 05:07] LABS: ABSOLUTE NEUTROPHILS 10.1 thou/uL (1.4-8.2); BASOPHILS 1.3 % (0.0-2.0); EOSINOPHILS 1.1 % (0.0-3.0); HEMATOCRIT 30.5 % (42.0-52.0); LYMPHOCYTES 13.7 % (24.0-44.0); MCH 30.3 pg (26.0-34.0); MCHC 30.7 g/dL (28.0-37.0); MONOCYTES 10.5 % (1.0-8.0); PLATELET COUNT 465 thou/uL (150-400); POLYS 73.4 % (36.0-66.0); RDW 15.2 % (10.5-14.5); WBC 13.7 thou/uL (4.0-11.0)
[2017-04-30 05:13] LABS: HEMOGLOBIN 9.4 gm/dL (14.0-18.0); MANUAL DIFF NO; MCV 98.6 fL (80.0-100.0)
[2017-04-30 07:16] VITALS: BP 121/76
[2017-04-30 12:30] VITALS: BP 137/94
[2017-04-30 15:24] VITALS: BP 127/84
[2017-04-30 20:42] VITALS: BP 121/92
[2017-05-01 04:00] VITALS: BP 131/86
[2017-05-01 04:49] LABS: ALBUMIN 1.8 g/dL (3.4-5.0); CALCIUM 7.6 mg/dL (8.5-10.1); POTASSIUM 3.8 mmol/L (3.5-5.1); TOTAL BILIRUBIN 1.4 mg/dL (<0.1-1.0)
[2017-05-01 05:41] LABS: CREATININE 0.5 mg/dL (0.7-1.3); MAGNESIUM 1.5 mg/dL (1.8-2.4)
[2017-05-01 06:14] LABS: TOTAL PROTEIN 6.7 g/dL (6.4-8.2)
[2017-05-01 07:30] VITALS: BP 137/89
[2017-05-01 09:42] VITALS: BP 137/89
[2017-05-01 11:40] VITALS: BP 122/86
[2017-05-01 16:00] VITALS: BP 121/80
[2017-05-01 20:30] VITALS: BP 116/69; BP 150/83
[2017-05-02 04:35] VITALS: BP 123/87
[2017-05-02 06:02] LABS: HEMOGLOBIN 9.9 gm/dL (14.0-18.0); MCH 29.5 pg (26.0-34.0); MCHC 33.1 g/dL (28.0-37.0); PLATELET COUNT 487 thou/uL (150-400); RBC 3.37 mil/uL (4.50-6.00); RDW 13.5 % (10.5-14.5); WBC 11.6 thou/uL (4.0-11.0)
[2017-05-02 06:10] LABS: MANUAL DIFF YES; MCV 89.1 fL (80.0-100.0)
[2017-05-02 06:24] LABS: ALBUMIN 1.9 g/dL (3.4-5.0); CALCIUM 8.6 mg/dL (8.5-10.1); CREATININE 0.9 mg/dL (0.7-1.3); POTASSIUM 3.9 mmol/L (3.5-5.1); TOTAL BILIRUBIN 1.1 mg/dL (<0.1-1.0); TOTAL PROTEIN 7.5 g/dL (6.4-8.2)
[2017-05-02 08:32] LABS: ABSOLUTE NEUTROPHILS 8.2 thou/uL (1.4-8.2); METAMYELOCYTES 1 %; PLATELET ESTIMATE INCREASED; TOTAL CELL COUNT 100
[2017-05-02 18:49] VITALS: BP 120/77
[2017-05-02 19:45] VITALS: BP 117/83
[2017-05-03 04:30] VITALS: BP 129/94
[2017-05-03 04:49] LABS: HEMATOCRIT 31.2 % (42.0-52.0); HEMOGLOBIN 10.5 gm/dL (14.0-18.0); MCH 29.6 pg (26.0-34.0); MCHC 33.7 g/dL (28.0-37.0); MCV 87.9 fL (80.0-100.0); PLATELET COUNT 418 thou/uL (150-400); RBC 3.55 mil/uL (4.50-6.00); RDW 13.6 % (10.5-14.5); WBC 10.1 thou/uL (4.0-11.0)
[2017-05-03 04:51] LABS: MANUAL DIFF YES
[2017-05-03 05:05] LABS: CALCIUM 8.6 mg/dL (8.5-10.1); CREATININE 0.7 mg/dL (0.7-1.3); POTASSIUM 3.8 mmol/L (3.5-5.1); TOTAL BILIRUBIN 0.9 mg/dL (<0.1-1.0); TOTAL PROTEIN 7.9 g/dL (6.4-8.2)
[2017-05-03 05:57] LABS: ABSOLUTE NEUTROPHILS 6.4 thou/uL (1.4-8.2); MYELOCYTES 3 %; TOTAL CELL COUNT 100
[2017-05-03 08:00] VITALS: BP 135/92
[2017-05-03] MEDS ORDERED: LEVAQUIN 750 M750 MG PO (11:45)
[2017-05-03] MEDS ORDERED: FLAGYL500 MG PO (11:45)
[2017-05-03 12:00] VITALS: BP 113/81
[2017-05-03] MEDS ORDERED: NORCO 5-325 TA1 EACH PO (13:20)
[2017-05-03 14:10] VITALS: BP 113/81
[2017-05-03 14:18] VITALS: BP 113/81
== END 2017-05-03 15:00 | disposition home health service (06) | DRG 853 ==
LOC: 4N 05:29 → ICU 05:29 → 4W 05:29 → TBA 05:29 → PRE 12:17 → 4N 16:09 → 4W 04-16 15:51 → ICU 04-19 14:43 → 2N 04-24 15:25 → ENTRNSPT 05-03 14:54 → EDTRNSPTSTS 05-03 14:59 → 2N 05-03 15:00
PROVIDERS: Family Medicine; Internal Medicine Infectious Disease; Internal Medicine Pulmonary Disease; Nurse Practitioner Family; Surgery
PROC: 0DTN4ZZ Resection of Sigmoid Colon, Percutaneous Endoscopic Approach (ICD-10-PCS; principal; 2017-04-13)
PROC: 02H633Z Insertion of Infusion Device into Right Atrium, Percutaneous Approach (ICD-10-PCS; 2017-04-19)
PROC: 0DBE0ZZ Excision of Large Intestine, Open Approach (ICD-10-PCS; 2017-04-19)
PROC: B244ZZZ Ultrasonography of Right Heart (ICD-10-PCS; 2017-04-19)
PROC: 0DB80ZZ Excision of Small Intestine, Open Approach (ICD-10-PCS; 2017-04-19)
PROC: 0BH17EZ Insertion of Endotracheal Airway into Trachea, Via Natural or Artificial Opening (ICD-10-PCS; 2017-04-20)
PROC: 5A1955Z Respiratory Ventilation, Greater than 96 Consecutive Hours (ICD-10-PCS; 2017-04-20)
PROC: 0W9G00Z Drainage of Peritoneal Cavity with Drainage Device, Open Approach (ICD-10-PCS; 2017-04-20)
DX: A41.9 Sepsis, unspecified organism (principal); J96.00 Acute respiratory failure, unspecified whether with hypoxia or hypercapnia; K65.1 Peritoneal abscess; K57.20 Diverticulitis of large intestine with perforation and abscess without bleeding; E87.1 Hypo-osmolality and hyponatremia; J98.11 Atelectasis; K56.60 Unspecified intestinal obstruction; E46 Unspecified protein-calorie malnutrition; I10 Essential (primary) hypertension; R41.0 Disorientation, unspecified; K21.9 Gastro-esophageal reflux disease without esophagitis; Z68.29 Body mass index [BMI] 29.0-29.9, adult; D72.829 Elevated white blood cell count, unspecified; T85.898A Other specified complication of other internal prosthetic devices, implants and grafts, initial encounter; Z79.899 Other long term (current) drug therapy; Z83.79 Family history of other diseases of the digestive system; Y83.8 Other surgical procedures as the cause of abnormal reaction of the patient, or of later complication, without mention of misadventure at the time of the procedure
CPT/HCPCS: 10045; 10078; 10081; 10790; 27000; 50010; 50101; 50249; 50386; 50411; 50455; 50555; 50558; 50612; 50643; 50739; 50740; 50820; 50886; 50943; 50944; 51398; 51474; 51489; 52190; 53065; 53307; 53310; 53335; 54022; 55245; 56462; 56524; 56525; 56526; 56527; 56530; 62110; 62900; 70005; 83006

== ENCOUNTER → 2017-05-16 | Outpatient (CLI) | payer OTHER ==
[~2017-05-16] MED LIST: FLAGYL500 MG PO; LEVAQUIN 750 M750 MG PO; NORCO 5-325 TA1 EACH PO
== END ==
LOC: CAT 09:58
DX: K65.8 Other peritonitis (principal)

== ENCOUNTER 2017-05-23 23:55 | Inpatient (IN) | payer OTHER ==
[~2017-05-23] VITALS: Ht 182.9 cm; Wt 86.2 kg
--- NOTE | ~2017-05-23 | EKG ---
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
--- NOTE | ~2017-05-23 | HC ---
[facility] [place] [address] [place] [address] CONSULTATION Name: RADHA DUKE Room #: 426-P ADM IN M.R.#: [id number] Admission: 05/24/17 Attend Phys: Sairta Garg Discharge: Date of : 72 Report #: [id number] THIS REPORT FOR: //name// CC: Bull Garg REASON FOR CONSULTATION: I was asked to evaluate concerning peritonitis and pulmonary embolus. HISTORY OF PRESENT ILLNESS: The patient was a 47-year-old who was evaluated last month after complications from diverticulitis. He had a longstanding history of diverticulitis. He underwent elective sigmoid resection on 04/13/2017. This was complicated by anastomotic leak and abscess. He now has a diverting colostomy. He is 35 days post-surgery. He had received IV antibiotic therapy and then was on ciprofloxacin and metronidazole in the outpatient setting. He was seen last week with no drainage from his abdominal incision. Good ostomy output, normal white count, arthritis suspected from ciprofloxacin. His antibiotics were discontinued. Several days ago, he developed pleuritic chest pain to his right side. No cough or hemoptysis. Has had a previous pulmonary embolus in October of this past year, after which he was anticoagulated for 4 months. He does not know the extent of his workup. Currently, no fever, chills or sweats. His arthritis symptoms have resolved. No dysuria. Has had some constipation from his colostomy. ALLERGIES: NONSTEROIDAL ANTI-INFLAMMATORIES. MEDICATIONS: As noted on his OCT. He was placed on Levaquin. PAST MEDICAL HISTORY: Pulmonary embolus, hypertension, diverticulitis and above-noted issues. FAMILY HISTORY: Diverticular disease. No family history of PE. 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 Nonsmoker, no significant alcohol intake. REVIEW OF SYSTEMS: Noted above. PHYSICAL EXAMINATION: VITAL SIGNS: Afebrile, hemodynamically stable. Room air saturation 95%. GENERAL: The patient is alert and cooperative and pleasant, in no acute distress. HEENT: Unremarkable. NECK: Supple, no adenopathy, no rash. LUNGS: Few crackles in the right base posteriorly. No rub or consolidation. HEART: Regular, without murmur. ABDOMEN: Soft, nontender, no hepatosplenomegaly or mass. Lower abdominal incision unremarkable. Colostomy site unremarkable. [address] [address] CONSULTATION Name: RADHA DUKE Room #: 426-P ADM IN M.R.#: [id number] Admission: 05/24/17 Attend Phys: Sarita Garg Discharge: Date of : 72 Report #: [id number] EXTREMITIES: Unremarkable. LABORATORY STUDIES: Hemoglobin 12, WBC 13.4, platelet count was ____. Creatinine 1. CT scan of the chest shows multiple pulmonary emboli with right base pulmonary infarct. IMPRESSION AND PLAN: A 47-year-old with anastomotic leak and abscess, having been treated now out more than a month. He has a diverting colostomy. I suspect his leukocytosis is related to his pulmonary infarct. I would like to observe off antibiotics at this time. He will have further workup for his recurring pulmonary embolus. I have discussed the case with Internal Medicine today. We will observe off antibiotics and repeat his CBC in the next 24-48 hours. <ELECTRONICALLY SIGNED> By: Terrell Fairbanks MD 05/25/17 1120 0952 1021 Terrell Fairbanks MD /nt
--- NOTE | ~2017-05-23 | HC ---
[facility] [place] [address] [place] [address] CONSULTATION Name: RADHA DUKE Room #: 426-P ADM IN M.R.#: [id number] Admission: 05/24/17 Attend Phys: Sarita Garg Discharge: Date of : 72 Report #: [id number] THIS REPORT FOR: //name// CC: Bull Oglesby M.D., Dr. Sarita Garg DATE OF SERVICE: 05/24/2017 PULMONARY CONSULTATION REFERRING PROVIDER: . PRIMARY CARE PROVIDER: Bull Oglesby M.D. REASON FOR CONSULTATION: Pulmonary embolism. CHIEF COMPLAINT: Chest pain and shortness of breath. HISTORY OF PRESENT ILLNESS: Our group was asked to evaluate this patient in consultation while hospitalized at [facility], previously seen by my partner, Dr. Prabhakar, on prior admission. He is a 47-year-old male with a prior history of postoperative venous thromboembolism in October of this year. He completed anticoagulant therapy through February and underwent repeat surgery in April with elective sigmoid resection. However, the postoperative course complicated by anastomotic leak and abscess, now has an ostomy with a closed abdomen. He had been doing reasonably well since discharge, rehabing at home. However, 2 days ago, he started having some right-sided chest discomfort, somewhat pleuritic in nature, hurt to take deep inspiratory efforts and some cough and low-grade fever. No chills or sweats. No abdominal pain, nausea or vomiting. The patient presented to the Emergency Department overnight because pain had gotten very severe. CT scan of the chest PE protocol revealed multiple pulmonary emboli and a small right pleural effusion. Currently, he is on heparin GTT and is able to ambulate in the room without any significant distress, but does note significant ongoing right-sided chest discomfort. ALLERGIES: NONSTEROIDAL ANTI-INFLAMMATORIES. PAST MEDICAL HISTORY: 1. Diverticular disease, as described in the HPI, status post sigmoidectomy. 2. Prior history of hypertension, on no medications. 3. Previous pulmonary embolism associated with surgery. SOCIAL HISTORY: Remote tobacco history, quitting about 4-5 years ago. No significant alcohol consumption. 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 [facility] [address] [place] [address] CONSULTATION Name: RADHA DUKE Room #: 426-P [facility] IN [facility].#: [id number] Admission: 05/24/17 Attend Phys: Sarita Garg Discharge: Date of : 72 Report #: [id number] FAMILY HISTORY: Negative for any history of prior venous thromboembolism or early cardiac disease. REVIEW OF SYSTEMS: As described in the HPI. Rest of 12-point review of systems is normal. PHYSICAL EXAMINATION: VITAL SIGNS: Temperature max 37.6, temperature current 37.0, pulse 90s and regular, respiratory rate 18, blood pressure 126/95 and oxygen saturation 95% on room air. GENERAL: This is a pleasant middle-aged male who does not appear in distress. ENT: Clear oropharynx. No dental caries. Mallampati 1 airway. HEENT: No thrush. NECK: Supple. No lymphadenopathy or thyromegaly. LUNGS: Clear. No wheezes, crackles or rubs appreciated. CARDIOVASCULAR: Heart is regular. No murmurs appreciated. ABDOMEN: Reveals well-healed midline scar. Ostomy is pink. Mild tenderness noted to palpation. Active bowel sounds. EXTREMITIES: Without significant edema and warm, with 2+ pulses noted in the periphery. LABORATORY DATA: White blood cell count 13,000, hemoglobin 12, hematocrit 37 and platelet count 320,000. Sodium 135, potassium 4.1, chloride 100, bicarbonate 27, BUN 18, creatinine 1.0 and glucose 126. INR was 1.2. PTT this morning on heparin GTT was 44.9. CT scan as described in the HPI. IMPRESSION: 1. Recurrent pulmonary embolism. Both episodes have been associated with prior abdominal surgery. Albeit these are related to surgical events, is certainly at high risk for recurrent pulmonary emboli in the future and anticipate lifelong anticoagulation. Suggest heparin or csl-eqsljqdcl-vigfiu heparin like upfront for a minimum of 5 days and then could consider transitioning back to Eliquis, which he had been on previously. If no signs of intolerance to current bleeding, this will have to be readdressed at some point prior to reanastomosis of his current ostomy. However, anticipate indefinite anticoagulation at this point. 2. Fever. Per Infectious Disease Service, the patient with recent peritonitis as described in the HPI. SUGGESTIONS: As outlined above. The patient is stable to ambulate as tolerated. We will follow along with you. By: [id number] Yemi Sawant MD /nt
--- NOTE | ~2017-05-23 | EKG ---
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
[2017-05-24 00:08] LABS: HEMATOCRIT 36.6 % (42.0-52.0); HEMOGLOBIN 12.1 gm/dL (14.0-18.0); MCH 27.6 pg (26.0-34.0); MCV 83.7 fL (80.0-100.0); RBC 4.37 mil/uL (4.50-6.00); RDW 14.2 % (10.5-14.5); WBC 13.4 thou/uL (4.0-11.0)
[2017-05-24] MEDS ORDERED: HYDROCODONE-AP1 EAC6 PO (00:11)
[2017-05-24] MEDS ORDERED: COLACE100 MG PO (00:11)
[2017-05-24] MEDS ORDERED: DULCOLAX5 MG PO (00:11)
[2017-05-24] MEDS ORDERED: PROBIOTIC1 EAC1 PO (00:12)
[2017-05-24 00:17] LABS: ANION GAP 8 mmol/L (7-16); BUN 8 mg/dL (7-18); CALCIUM 9.7 mg/dL (8.5-10.1); CHLORIDE 100 mmol/L (98-107); CO2 27 mmol/L (21-32); GLUCOSE 126 mg/dL (74-106); POTASSIUM 4.1 mmol/L (3.5-5.1); SODIUM 135 mmol/L (136-145)
[2017-05-24 00:22] LABS: INR 1.2
[2017-05-24 00:26] LABS: TROPONIN-I < 0.04 ng/mL (<0.04-0.07)
[2017-05-24 02:07] VITALS: BP 111/87
[2017-05-24 02:31] VITALS: BP 122/89
[2017-05-24 07:30] VITALS: BP 126/95
[2017-05-24 17:40] VITALS: BP 145/92
[2017-05-24 19:12] VITALS: BP 128/92
[2017-05-25 03:19] VITALS: BP 134/96
[2017-05-25 05:56] LABS: HEMATOCRIT 35.1 % (42.0-52.0); HEMOGLOBIN 11.5 gm/dL (14.0-18.0); MCH 27.5 pg (26.0-34.0); MCHC 32.8 g/dL (28.0-37.0); MCV 84.1 fL (80.0-100.0); RBC 4.17 mil/uL (4.50-6.00); RDW 14.3 % (10.5-14.5); WBC 10.9 thou/uL (4.0-11.0)
[2017-05-25 06:07] LABS: CALCIUM 10.1 mg/dL (8.5-10.1); CREATININE 0.8 mg/dL (0.7-1.3); POTASSIUM 4.4 mmol/L (3.5-5.1)
[2017-05-25 07:19] VITALS: BP 139/100
[2017-05-25 12:12] VITALS: BP 123/88
[2017-05-25 16:04] VITALS: BP 120/84
[2017-05-25 19:02] VITALS: BP 136/97
[2017-05-26 03:49] VITALS: BP 149/98
[2017-05-26 07:42] VITALS: BP 124/84
[2017-05-26] MEDS ORDERED: ELIQUIS5 MG PO (10:33)
[2017-05-26] MEDS ORDERED: ENOXAPARIN120 MG/0.1 SUBQ (10:33)
[2017-05-26] MEDS ORDERED: HYDROCODONE-AP1 EAC6 PO (10:33)
[2017-05-26 12:08] VITALS: BP 124/84
== END 2017-05-26 14:52 | disposition home or self-care (01) | DRG 871 ==
LOC: ER 23:55 → EROBS 05-24 01:38 → 4E 05-24 01:38
PROVIDERS: Emergency Medicine; Nurse Practitioner Family
DX: A41.9 Sepsis, unspecified organism (principal); I26.99 Other pulmonary embolism without acute cor pulmonale; J18.9 Pneumonia, unspecified organism; I10 Essential (primary) hypertension; K21.9 Gastro-esophageal reflux disease without esophagitis; Z88.6 Allergy status to analgesic agent; Z87.891 Personal history of nicotine dependence; Z80.8 Family history of malignant neoplasm of other organs or systems; Z93.3 Colostomy status; Z90.49 Acquired absence of other specified parts of digestive tract
CPT/HCPCS: 10183